=== PATIENT | female | born 1985 | race Caucasian/White ===

== ENCOUNTER 2020-06-14 02:47 | Emergency (ER) | payer OTHER ==
[~2020-06-14] VITALS: Ht 175.3 cm; Wt 79.0 kg
[2020-06-14 03:55] VITALS: BP 123/85
== END 2020-06-14 03:30 | disposition home or self-care (01) ==
LOC: ER 02:47
DX: Z77.21 Contact with and (suspected) exposure to potentially hazardous body fluids (principal); Z88.1 Allergy status to other antibiotic agents; Z88.5 Allergy status to narcotic agent; Z88.8 Allergy status to other drugs, medicaments and biological substances
CPT/HCPCS: 99281; 99282